=== PATIENT | female | born 1975 | race Two or more races ===

== ENCOUNTER 2018-11-25 18:28 | Emergency (ER) | payer SELFPAY ==
[~2018-11-25] VITALS: Ht 157.5 cm; Wt 71.7 kg
--- NOTE | 2018-11-25 18:47 | NUR ---
SEEN BY ER SUSAN AT BEDSIDE
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
--- NOTE | 2018-11-25 19:16 | NUR ---
report given to shashank morelos maciej.
[2018-11-25 19:18] LABS: BASOPHILS % (AUTO) 0.3 % (0.0-2.0); EOSINOPHILS % (AUTO) 2.2 % (0.0-6.0); HEMATOCRIT 40 % (33-45); HEMOGLOBIN 13.3 g/dL (11.5-14.8); LYMPHOCYTES # (AUTO) 3.3 /CMM (0.8-4.8); LYMPHOCYTES % (AUTO) 33.2 % (20.0-44.0); MEAN CORPUSCULAR HGB CONC 33 g/dl (31.0-36.0); MEAN CORPUSCULAR VOLUME 97 fL (82-100); MONOCYTES # (AUTO) 0.6 /CMM (0.1-1.30); MONOCYTES % (AUTO) 5.9 % (2.0-12.0); NEUTROPHILS # (AUTO) 5.7 /CMM (1.8-8.9); NEUTROPHILS % (AUTO) 58.4 % (43.0-81.0); PLATELET COUNT (AUTO) 320 /CMM (150-450); RED BLOOD CELL COUNT(AUTO) 4.14 MIL/uL (4.0-5.2); WHITE BLOOD COUNT (AUTO) 9.8 K/uL (4.3-11.0)
[2018-11-25 19:24] LABS: APPEARANCE,URINE Clear (CLEAR); BILIRUBIN,URINE Negative (NEGATIVE); BLOOD, URINE Negative Ery/uL (NEGATIVE); COLOR,URINE Yellow (YELLOW); KETONES,URINE Negative (NEGATIVE); LEUKOCYTE ESTERASE ,URINE Negative (NEGATIVE); NITRITE, URINE Negative (NEGATIVE); PROTEIN,URINE Negative (NEGATIVE); UGLUCOSE Negative (NEGATIVE); UROBILINOGEN,URINE 0.2 EU/dL (0.2)
[2018-11-25] MEDS ORDERED: IV NS 0.9% 1,000 ML BAG IV ONE (19:30)
[2018-11-25 19:56] LABS: CALCIUM, SERUM 8.5 mg/dL (8.5-10.1); CARBON DIOXIDE 24 mmol/L (21-32); CHLORIDE 102 mmol/L (98-107); CREATININE 0.7 mg/dL (0.6-1.3); GLUCOSE 92 mg/dL (74-106); POTASSIUM 4.5 mmol/L (3.5-5.1); SODIUM SERUM 136 mmol/L (136-145); UREA NITROGEN, BLOOD 11 mg/dL (7-18)
--- NOTE | 2018-11-25 20:05 | NUR ---
REFUSED CT. AWARE
[2018-11-25 20:09] LABS: ACETAMINOPHEN 8 ug/ml (10-30); ALANINE AMINOTRANSFERASE 15 U/L (12-78); ALBUMIN 3.6 g/dL (3.4-5.0); ALCOHOL, BLOOD < 3 mg/dL (0-0); ALKALINE PHOSPHATASE 49 U/L (46-116); ASPARTATE AMINOTRANSFERASE 16 U/L (15-37); BILIRUBIN,TOTAL 0.1 mg/dL (0.2-1.0); SALICYLATE 4.8 mg/dL (2.8-20.0); TOTAL PROTEIN, SERUM 7.3 g/dL (6.4-8.2)
--- NOTE | 2018-11-25 20:35 | NUR ---
LAYIING DOWN IN BED W/ PERIODS OF AGITATION. REPORTED WILLING TO LEAVE. KEEPS ON REMOVING THE MONITORING ,
--- NOTE | 2018-11-25 20:50 | NUR ---
VISITOR AT THE BED SIDE
--- NOTE | 2018-11-25 21:53 | NUR ---
ANXIOUS AND AGITATED. KEEP ON ASKING TO D/C THE IV LINE AND LEAVE THE HOSPITAL. MADE AWARE AND SPOKE TO THE PT.
--- NOTE | 2018-11-25 22:09 | NUR ---
Patient discharged to home in stable condition. PT / FRIEND REFUSED Written and after care instructions .
[2018-11-25 22:10] VITALS: BP 136/79
== END 2018-11-25 22:10 | disposition home or self-care (01) ==
LOC: ER 18:32 → EDBD 18:32 → ER 22:10
DX: R41.82 Altered mental status, unspecified (principal); F19.10 Other psychoactive substance abuse, uncomplicated; Z85.850 Personal history of malignant neoplasm of thyroid
CPT/HCPCS: 36415; 80048; 80076; 80305; 80307; 80329; 81001; 84702; 85025; 96360; 99284; G0480; J7030; 81000-TC

== ENCOUNTER 2019-02-24 14:25 | Inpatient (IN) | payer SELFPAY ==
[~2019-02-24] VITALS: Ht 154.9 cm; Wt 66.7 kg
--- NOTE | 2019-02-24 14:40 | NUR ---
BRA FROM HOME: CP X 12 HOURS, NOT BETTER OR WORSE. STRESSED - RECENTLY. PATIENT A/OX4, BREATHING EVEN AND UNLABORED, NO SOB NOTED. C/O CHEST PAIN. ATTACHED TO THE MONITOR. CHANGED INTO GOWN.
[2019-02-24] MEDS ORDERED: MORPHINE SULFATE INJ 2 MG/ML DISP.SYRIN IV ONE (15:00)
[2019-02-24] MEDS ORDERED: ONDANSETRON HCL/PF 4 MG/2 ML VIAL IVP ONE (15:00)
[2019-02-24] MEDS ORDERED: ONDANSETRON HCL/PF 4 MG/2 ML VIAL ONE (15:07)
[2019-02-24] MEDS ORDERED: MORPHINE SULFATE INJ 4 MG/ML DISP.SYRIN ONE (15:08)
--- NOTE | 2019-02-24 15:15 | NUR ---
PATIENT UNABLE TO PROVIDE URINE AT THIS TIME, PER PATIENT, "IM FEELING WEAK"
[2019-02-24 15:16] LABS: BASOPHILS # (AUTO) 0.1 /CMM (0.0-0.2); BASOPHILS % (AUTO) 0.4 % (0.0-2.0); EOSINOPHILS % (AUTO) 1.4 % (0.0-6.0); HEMATOCRIT 34 % (33-45); HEMOGLOBIN 11.1 g/dL (11.5-14.8); LYMPHOCYTES % (AUTO) 24.9 % (20.0-44.0); MEAN CORPUSCULAR HGB CONC 33 g/dl (31.0-36.0); MEAN CORPUSCULAR VOLUME 97 fL (82-100); MONOCYTES # (AUTO) 0.7 /CMM (0.1-1.30); MONOCYTES % (AUTO) 5.4 % (2.0-12.0); NEUTROPHILS # (AUTO) 8.2 /CMM (1.8-8.9); NEUTROPHILS % (AUTO) 67.9 % (43.0-81.0); PLATELET COUNT (AUTO) 324 /CMM (150-450); RED BLOOD CELL COUNT(AUTO) 3.49 MIL/uL (4.0-5.2); WHITE BLOOD COUNT (AUTO) 12.1 K/uL (4.3-11.0)
[2019-02-24 15:24] LABS: CALCIUM, SERUM 8.2 mg/dL (8.5-10.1); CARBON DIOXIDE 27 mmol/L (21-32); CHLORIDE 105 mmol/L (98-107); CREATININE 0.6 mg/dL (0.6-1.3); GLUCOSE 126 mg/dL (74-106); POTASSIUM 3.9 mmol/L (3.5-5.1); SODIUM SERUM 138 mmol/L (136-145); UREA NITROGEN, BLOOD 13 mg/dL (7-18)
[2019-02-24 15:37] LABS: B-TYPE NATRIURETIC PEPTIDE 163 PG/ML (0-125)
--- NOTE | 2019-02-24 15:37 | NUR ---
CXR TECH AT BEDSIDE.
--- NOTE | 2019-02-24 15:58 | NUR ---
PAGED DR CHANEY
--- NOTE | 2019-02-24 16:02 | NUR ---
CALLED FOR TELE BED, TURNED IN MOVE SHEET
[2019-02-24] MEDS ORDERED: LEVO25TA7 PO (16:12)
[2019-02-24] MEDS ORDERED: ALPR2TAB2 PO (16:12)
[2019-02-24] MEDS ORDERED: HYDR-4384 PO (16:12)
--- NOTE | 2019-02-24 17:15 | NUR ---
SWEET PICKLED FRUIT MAKER NOTES COMPLAINS OF CHEST PAIN X12 HOURS. PER PATIENT OVER THE WEEKEND. ALL PATIENT BELONGINGS ACCOUNTED FOR AND DOCUMENTED. NO SI. PATIENT TELE MONITORED NSR RATE IN THE 80'S. PT HAS LEFT HAND #20 IV INTACT AND PATENT. SAFETY PRECAUTIONS IN PLACE, BED IN LOWEST LOCKED POSITION, X2 SIDE RAILS UP AND CALL LIGHT WITHIN REACH. AWAITING ADMITTING ORDERS. WILL CONTINUE TO MONITOR.
--- NOTE | 2019-02-24 17:24 | NUR ---
PATIENT TRANSFERRED TO ROOM 312-1 VIA ACLS PROTOCOL. PATIENT A/OX4, BREATHING EVEN AND UNLABORED, NO SOB NTOED. STILL C/O MILD CHEST PAIN. DR. WINN MADE AWARE WITH NO NEW ORDER. ENDORSED TO WILLIAM PARADA FOR LANDY.
[2019-02-24 17:43] VITALS: BP 105/77
--- NOTE | 2019-02-24 19:00 | NUR ---
RN CLOSING NOTES AWAITING ADMITTING ORDERS. WILL ENDORSE TO MIXING PICKER TENDER NURSE FOR CONTINUITY OF CARE.
--- NOTE | 2019-02-24 19:45 | NUR ---
TELE/RN OPENING NOTES PT RECEIVED ASLEEP, RESPONSIVE TO NAME. ON ROOM AIR, BREATHING EVEN AND UNLABORED. DENIES SOB, NOTES 04/03 CP. WILL NOTIFY . IV TO LEFT HAND PATENT AND INTACT. ON TELE MONITOR SHOWING SR 91. BED IN LOW/LOCKED POSITION WITH CALL LIGHT IN REACH. SEMI FOWLERS IN BED. BILAT. UPPER SIDE RAILS IN PLACE. WILL CONTINUE TO MONITOR
[2019-02-24 20:00] VITALS: BP 103/56
--- NOTE | 2019-02-24 20:10 | NUR ---
TELE/RN NOTES DR. CHANEY AWARE OF PT'S 10/10 CHEST PAIN. WITH VERBAL ORDERS FOR MORPHINE 2MG IV Q4H PRN SEVERE PAIN AND ZOFRAN 4MG IV Q6H PRN NAUSEA/VOMITING. ORDERS READBACK FOR VERIFICATION. WILL CARRY OUT.
[2019-02-24] MEDS: ONDANSETRON HCL/PF 4 MG/2 ML VIAL IV PRN (20:23)
[2019-02-24] MEDS: MORPHINE SULFATE INJ 2 MG/ML DISP.SYRIN IV PRN (20:30)
--- NOTE | 2019-02-24 20:30 | NUR ---
TELE/RN NOTES PT C/O 04/03 PAIN TO CHEST, ADMINISTERED PRN MORPHINE AND ZOFRAN ORDERED. WILL MONITOR FOR EFFECTIVENESS.
[2019-02-25] VITALS: BP 101/55
[2019-02-25 00:06] VITALS: BP 101/55
[2019-02-25] MEDS: MORPHINE SULFATE INJ 2 MG/ML DISP.SYRIN IV PRN ×2 (01:23→06:18)
--- NOTE | 2019-02-25 01:30 | NUR ---
TELE/RN NOTES PT C/O 04/03 CP AND REQUESTING PAIN MEDS. BP 108/69, HR 81. ADMINISTERED PRN MORPHINE ORDERED.
[2019-02-25 04:00] VITALS: BP 131/83
--- NOTE | 2019-02-25 04:22 | NUR ---
TELE/RN NOTES PT C/O DIFFICULTY BREATHING AND HAS PRODUCTIVE COUGH. PT NOTED WITH WHEEZES. PAGERebecca SENA COTTAGE SUPERVISOR Addendum: 02/25/19 at 0423 by SOURAV GOMEZ RN SPO2 97%
--- NOTE | 2019-02-25 04:28 | NUR ---
TELE/RN NOTES DR. MCKEON WITH VERBAL ORDERS FOR BREATHING TX - ALBUTEROL 2.53MG/3ML NEB AND ATROVENT 0.5MG NEB Q4H PRN. RT NOTIFIED
--- NOTE | 2019-02-25 04:33 | NUR ---
TELE/RN NOTES RN FIELD CASE MANAGER PHARMACY PAGED TO VERIFIED BREATHING TX
[2019-02-25] MEDS: ALBUTEROL FS 2.5 MG/3 ML VIAL.NEB NEB PRN ×2 (04:35→08:16)
[2019-02-25] MEDS: IPRATROPIUM NEB FS 0.5 MG/2.5 ML AMPUL.NEB NEB PRN ×2 (04:35→08:16)
[2019-02-25] MEDS: ONDANSETRON HCL/PF 4 MG/2 ML VIAL IV PRN (06:15)
--- NOTE | 2019-02-25 06:24 | NUR ---
TELE/RN NOTES PT C/O 04/03 CHEST PAIN/PRESSURE AND REQUESTING PAIN MEDICATION. ADMINISTERED PRN MORPHINE AND ZOFRAN ORDERED. STANDBY OXYGEN AVAILABLE IF PT FEELS SOB ALTHOUGH SPO2 97% ON ROOM AIR. SHE STATES SHE NO LONGER HAS SOB AFTER HER BREATHING TX, STILL WITH A PRODUCTIVE COUGH THAT SHE IS UNABLE TO EXPECTORATE. WILL CONTINUE TO MONITOR
[2019-02-25 06:26] LABS: BASOPHILS % (AUTO) 0.3 % (0.0-2.0); EOSINOPHILS % (AUTO) 1.7 % (0.0-6.0); HEMATOCRIT 38 % (33-45); HEMOGLOBIN 12.3 g/dL (11.5-14.8); LYMPHOCYTES % (AUTO) 24.5 % (20.0-44.0); MEAN CORPUSCULAR HGB CONC 33 g/dl (31.0-36.0); MEAN CORPUSCULAR VOLUME 98 fL (82-100); MONOCYTES # (AUTO) 0.6 /CMM (0.1-1.30); MONOCYTES % (AUTO) 7.4 % (2.0-12.0); NEUTROPHILS # (AUTO) 5.3 /CMM (1.8-8.9); NEUTROPHILS % (AUTO) 66.1 % (43.0-81.0); PLATELET COUNT (AUTO) 328 /CMM (150-450); RED BLOOD CELL COUNT(AUTO) 3.84 MIL/uL (4.0-5.2); WHITE BLOOD COUNT (AUTO) 8.1 K/uL (4.3-11.0)
[2019-02-25 06:38] LABS: CALCIUM, SERUM 8.2 mg/dL (8.5-10.1); CREATININE 0.7 mg/dL (0.6-1.3); MAGNESIUM 1.7 mg/dL (1.8-2.4); PHOSPHORUS 2.7 mg/dL (2.5-4.9); POTASSIUM 4.3 mmol/L (3.5-5.1)
--- NOTE | 2019-02-25 06:45 | NUR ---
TELE/RN CLOSING NOTES PT AWAKE, RESTING COMFORTABLY IN BED. A/OX4. ON ROOM AIR, BREATHING EVEN AND UNLABORED. ON/OFF CHEST PAIN THROUGHOUT SHIFT, IMPROVED WITH PRN MORPHINE. ON TELE MONITOR SHOWING SR 85. IV TO LEFT HAND PATENT AND INTACT. NO SIGNIFICANT CHANGES OVERNIGHT. BED IN LOW/LOCKED POSITION WITH CALL LIGHT IN REACH. HOB ELEVATED. BILAT. UPPER SIDE RAILS IN PLACE. WILL ENDORSE TO DAY SHIFT RN LANDY.
[2019-02-25] MEDS ORDERED: LEVOTHYROXINE SODIUM 100 MCG TABLET PO SCH (07:30)
--- NOTE | 2019-02-25 07:51 | NUR ---
LEASE BUYER OPENING NOTES RECEIVED PATIENT IN BED, ASLEEP BUT AROUSABLE. ALERT AND ORIENTED X4. NO SOB OBSERVED. ON TELE MONITORING: SR 86. LEFT HAND #20 SL INTACT AND PATENT. BED IN LOWEST POSITION, LOCKED. BED SIDERAILS UP X2. CALL LIGHT WITHIN REACH. BED ALARM ON.
[2019-02-25 08:15] VITALS: BP 130/81
[2019-02-25] MEDS ORDERED: PANTOPRAZOLE 40 MG TABLET.DR PO SCH (09:00)
[2019-02-25] MEDS ORDERED: ASPIRIN 81 MG TAB.CHEW PO SCH (09:00)
[2019-02-25] MEDS ORDERED: ALPRAZOLAM 1 MG TABLET PO SCH (09:00)
[2019-02-25] MEDS ORDERED: ATORVASTATIN 40 MG TABLET PO SCH (09:00)
--- NOTE | 2019-02-25 09:00 | NUR ---
MS OPERATOR RECEPTIONIST/CLOSING NOTES PATIENT WANTED TO LEAVE AMA, EXPLAINED TO PATIENT RISKS AND BENEFITS. CHARGE NURSE MADE AWARE. DESPITE OF EDUCATION AND ENCOURAGEMENT PROVIDED, PATIENT STILL WANTS TO LEAVE AMA AND REFUSED 0900 MEDS. PATIENT STATED, "IT'S ONLY BRONCHITIS, I THOUGHT IT WAS SOMETHING ELSE. I HAVE AN APPOINTMENT WITH MY DR AT 11 AND I'LL GET MEDS THERE." PATIENT DRESSED SELF AND CALLED DAUGHTER TO PICK HER UP. PATIENT REFUSED TO TAKE DISCHARGE PACKET AND INSTRUCTIONS AND WAS IN A HURRY TO LEAVE. ALL BELONGINGS ACCOUNTED FOR. IV ACCESS LINE REMOVED WITH CATHETER INTACT WITH DRESSING IN PLACE. PATIENT AMBULATORY WITH STEADY GAIT. LEFT IN STABLE CONDITION VIA PRIVATE CARE.
--- NOTE | 2019-02-25 09:45 | NUR ---
Social service consult requested by Dr. Figueroa for polysubstance abuse. SW was informed by Med Surg 3 CRFrank Horne that pt. left AMA this morning.
[2019-02-25] MEDS ORDERED: ALBUTEROL FS 2.5 MG/0.5 ML VIAL.NEB NEB SCH (13:30)
== END 2019-02-25 09:00 | disposition left against medical advice (07) | DRG 951 ==
LOC: ER 14:30 → UNDOADMIN 16:31 → TELE2 16:31 → TELE 16:43
PROVIDERS: ADMIT Internal Medicine; ATTEND Nurse Practitioner Acute Care
DX: Z76.5 Malingerer [conscious simulation] (principal); F17.200 Nicotine dependence, unspecified, uncomplicated; D64.9 Anemia, unspecified; F32.9 Major depressive disorder, single episode, unspecified; F41.9 Anxiety disorder, unspecified; I11.0 Hypertensive heart disease with heart failure; I25.10 Atherosclerotic heart disease of native coronary artery without angina pectoris; Z85.850 Personal history of malignant neoplasm of thyroid; J44.9 Chronic obstructive pulmonary disease, unspecified; I25.2 Old myocardial infarction; Z79.899 Other long term (current) drug therapy; F15.11 Other stimulant abuse, in remission; F14.10 Cocaine abuse, uncomplicated; E83.42 Hypomagnesemia; I50.9 Heart failure, unspecified
CPT/HCPCS: 36415; 71045-TC; 80048-TC; 80061-TC; 80305; 83735-TC; 83880; 84100-TC; 84484-TC; 85025-TC; 85730-TC; 87081-TC; G0378; J2270; J2405